=== PATIENT | female | born 1980 | race Caucasian/White ===

== ENCOUNTER → 2017-05-30 | Emergency (ER) | payer OTHER ==
[~2017-05-30] VITALS: Ht 165.1 cm; Wt 72.6 kg
[~2017-05-30] MED LIST: AZITHROMYCIN500 MG
== END | disposition home or self-care (01) ==
LOC: ER 09:58
DX: J11.1 Influenza due to unidentified influenza virus with other respiratory manifestations (principal); B34.9 Viral infection, unspecified